=== PATIENT | male | born 1995 | race Two or more races ===

== ENCOUNTER 2022-02-19 16:09 | Emergency (ER) | payer MEDICAID ==
[~2022-02-19] VITALS: Ht 175.3 cm; Wt 93.0 kg
[2022-02-19] MEDS ORDERED: cefTRIAXone W LIDOCAINE 1 GM IM IM ONE (18:45)
[2022-02-19] MEDS ORDERED: cefTRIAXone SOD 1,000 MG VL ONE (18:46)
[2022-02-19 19:03] VITALS: BP 120/61
[2022-02-19] MEDS ORDERED: CLIN300C8 PO (19:07)
== END 2022-02-19 19:24 | disposition home or self-care (01) ==
LOC: ER 16:09
DX: S39.94XA Unspecified injury of external genitals, initial encounter (principal); N48.22 Cellulitis of corpus cavernosum and penis; S30.812A Abrasion of penis, initial encounter; X58.XXXA Exposure to other specified factors, initial encounter; Y93.89 Activity, other specified; Y92.89 Other specified places as the place of occurrence of the external cause; Y99.8 Other external cause status
CPT/HCPCS: 96372; 99283; J0696